=== PATIENT | male | born 1990 ===

== ENCOUNTER → 2021-09-25 | Outpatient (CLI) | payer OTHER ==
--- NOTE | 2021-09-25 13:18 | KCIC ---
EXAM: MRI RIGHT KNEE DATE: 09/25/2021 11:20 AM CLINICAL INDICATION: Reason: RIGHT KNEE PAIN / Spl. Instructions: / History: Fall, joint effusion. E valeriy for ACL injury. Pain and swelling 5 days. COMPARISON: None. TECHNIQUE: Multiplanar, multisequence MRI of the RIGHT knee was performed without contrast. FINDINGS: Large knee joint effusion. No North's cyst. ACL and PCL are intact. The MCL, fibular collateral ligament, biceps femoris and IT band are intact. Popliteus is intact, nor mal in signal and morphology. Mild suprapatellar fat pad edema may be seen with anterior knee pain. Extensor mechanism is intact. Medial meniscus: Intact Lateral meniscus: Intact Chondral fissuring and thinning at the lateral patellar facet with subchondral edema. Mild chondral f raying central medial femoral condyle. IMPRESSION: 1. Large right knee joint effusion. 2. Chondromalacia patella 3. ACL is intact. Electronically signed by: Neptali Morton MD (09/25/2021 1:16 PM) [id number]
== END ==
LOC: KCIC MRI 11:14
PROVIDERS: ATTEND Orthopaedic Surgery
DX: S83.511A Sprain of anterior cruciate ligament of right knee, initial encounter (principal); M25.461 Effusion, right knee; M22.41 Chondromalacia patellae, right knee; W10.9XXA Fall (on) (from) unspecified stairs and steps, initial encounter; Y93.89 Activity, other specified; Y92.89 Other specified places as the place of occurrence of the external cause; Y99.8 Other external cause status
CPT/HCPCS: 73721